=== PATIENT | male | born 1995 | race Caucasian/White ===

== ENCOUNTER 2024-09-14 22:58 | Emergency (ER) | payer OTHER ==
[~2024-09-14 22:58] MED LIST: Iopamidol 370 76% 100 ML VIAL ONE
[2024-09-14] MEDS ORDERED: Bicillin LA 1.2 MILLION UNITS/2 ML SYRINGE ONE (23:37)
[2024-09-14] MEDS ORDERED: Morphine 4 MG/ML VIAL ONE (23:37)
[2024-09-14 23:43] LABS: #Basophils 0.1 thou/uL (0.0-0.2); #Lymphocytes 1.6 thou/uL (1.20-3.40); #Neutrophils 9.5 thou/uL (1.40-6.50); %Basophils 0.7 % (0.0-1.0); %Eosinophils 0.2 % (0.0-10.0); %Lymphocytes 12.8 % (21.0-51.0); %Monocytes 8.5 % (0.0-10.0); %Neutrophils 77.9 % (42.0-75.0); Hematocrit 44.7 % (42.0-52.0); Hemoglobin 14.9 g/dL (14.0-18.0); Mean Corpuscular HGB CONC 33.4 g/dL (32.0-36.0); Mean Corpuscular Hemoglobin 30.5 pg (27.0-31.0); Mean Corpuscular Volume 91.4 fl (78.0-98.0); Mean Platelet Volume 5.9 fL (7.4-10.4); Platelet Count 247 10x3/uL (130-400); RBC Distribution Width 10.3 % (11.5-14.5); Red Blood Cell (RBC) Count 4.89 mill/uL (4.70-6.10); White Blood Cell (WBC) Count 12.2 10x3/uL (4.8-10.8)
[2024-09-14 23:45] LABS: MONO NEGATIVE CONTROL ZONE White (Negative) (White); MONO POSITIVE CONTROL Pink Line (Positive) (PINK/RED); Mononucleosis NEGATIVE (NEGATIVE)
[2024-09-14 23:55] LABS: ALT (SGPT) 11 U/L (8-55); AST (SGOT) 10 U/L (5-34); Albumin 3.9 g/dL (3.5-5.0); Alkaline Phosphatase 56 U/L (40-110); Anion Gap 14 mmol/L (10-20); BUN (Urea Nitrogen) 15 mg/dL (8.9-20.6); Bilirubin, Total 0.5 mg/dL (0.2-1.2); Calc. Creatinine Clearance 0 mL/min (70-130); Calcium 9.8 mg/dL (7.8-10.44); Carbon Dioxide 31 mmol/L (22-29); Chloride 105 mmol/L (98-107); Estimated GFR 109; Globulin 3.9 g/dL (2.4-3.5); Glucose 122 mg/dL (70-105); Potassium 3.8 mmol/L (3.5-5.1); Protein, Total 7.8 g/dL (6.0-8.3); Sodium 146 mmol/L (136-145)
[2024-09-15] MEDS ORDERED: Benzocaine 20% Spray 60 ML CAN ONE (00:27)
[2024-09-15] MEDS ORDERED: Morphine 4 MG/ML VIAL ONE (00:59)
[2024-09-15] MEDS ORDERED: Clindamycin 150 MG CAP ONE (00:59)
[2024-09-15] MEDS ORDERED: Dexamethasone 10 MG/ML VIAL ONE (01:23)
== END 2024-09-15 01:36 | disposition home or self-care (01) ==
LOC: BURERS 22:58
DX: J36 Peritonsillar abscess (principal)
CPT/HCPCS: 36415; 42700; 70491; 80053; 85025; 86308; 96372; 96374; 96375; 96376; J0561; J1100; J2272; Q9967